=== PATIENT | female | born 1935 | race Two or more races ===

== ENCOUNTER 2021-01-25 08:09 | Emergency (ER) | payer OTHER ==
[~2021-01-25] VITALS: Ht 157.5 cm; Wt 48.5 kg
[2021-01-25] MEDS ORDERED: METFORMIN HCL500 M3 (08:41)
== END 2021-01-25 10:42 | disposition home or self-care (01) ==
LOC: ER 08:09
DX: M19.09 Primary osteoarthritis, other specified site (principal); M79.605 Pain in left leg; M79.604 Pain in right leg; M54.2 Cervicalgia